=== PATIENT | female | born 1965 | race Caucasian/White ===

== ENCOUNTER → 2018-01-02 | Outpatient (REF) | payer BC | LOC: M SFHCLERA 15:29 | DX: J32.1 Chronic frontal sinusitis (principal) ==

== ENCOUNTER → 2018-12-28 | Outpatient (CLI) | payer BC ==
[~2018-12-28] MED LIST: IBUP200C25 PO; PERC5TAB12 PO; TYLE325T5 PO; naproxen OR
--- NOTE | 2018-12-28 17:50 | REP ---
PA and lateral chest: There are no comparisons. The lung mohan are clear. The cardiac size is normal. The stacey, mediastinum, and skeletal structures are unremarkable. Impression: Negative PA and lateral chest. Electronically Signed by Delta Lujan MD 12/28/2018 05:42 P
== END ==
LOC: M LRY 17:21
PROVIDERS: ATTEND Physician Assistant
DX: R06.09 Other forms of dyspnea (principal)

== ENCOUNTER → 2020-01-01 | Outpatient (CLI) | payer BC ==
[~2020-01-01] MED LIST changes: +GASTROGRAFIN SOLUTION 30ML (Q9963) As Ordered ONE; +ISOVUE-370 76% 100ML VIAL As Ordered ONE
--- NOTE | 2020-01-08 12:49 | REP ---
CT ABDOMEN AND PELVIS WITH ORAL CONTRAST, WITH AND WITHOUT IV CONTRAST HISTORY: Right upper quadrant pain and tenderness. COMPARISON: Comparison CT 10/15/2014. FINDINGS: CT abdomen and pelvis performed. Initial CT abdomen performed with only oral contrast. CT abdomen and pelvis performed following the administration of oral contrast as well as intravenous administration of 100 cc of [id number]. Sagittal and coronal reconstruction images were performed. In the visualized lung bases, there are mild interstitial fibrotic changes. The liver demonstrates no mass. The patient has had a prior cholecystectomy. There is no significant intrahepatic or extrahepatic biliary dilatation. The spleen is normal in size with no intrinsic abnormality. There is a small low density left adrenal nodule inferiorly which measures 1.5 cm in diameter. Density measurements on precontrast images are compatible with an adenoma. The pancreas demonstrates no mass. The kidneys demonstrate no mass or hydronephrosis. There is mild atherosclerotic calcification of the abdominal aorta without aneurysm. No adenopathy is seen in the abdomen or pelvis. There is no free air or free fluid. There is no bowel wall thickening. There is a small midline supraumbilical hernia in the anterior abdominal wall containing only fat. The aperture is fairly wide, approximately 3.4 cm in transverse diameter. No pelvic mass is seen. Urinary bladder is not well distended and is not well evaluated. A cystic structure is seen in the inferior aspect of the right gluteus medius muscle. This measures 3.9 cm in diameter. There are degenerative changes of the spine, most significantly at L5-S1 with moderate disc space narrowing at that level with subchondral sclerosis and vacuum phenomenon. IMPRESSION: Status post cholecystectomy without biliary dilatation. No free air or free fluid. No evidence of bowel obstruction. Small ventral hernia in the supraumbilical anterior abdominal wall containing only fat with an aperture of 3.4 cm in transverse dimension. Small left adrenal adenoma. Within the inferior aspect of the right gluteus medius muscle just above the greater trochanter, there is an oval cyst with a maximum diameter of 3.9 cm. MTDD
== END ==
LOC: M RAD 14:58
PROVIDERS: ATTEND Surgery
DX: R10.11 Right upper quadrant pain (principal); R10.811 Right upper quadrant abdominal tenderness; Z90.49 Acquired absence of other specified parts of digestive tract; D35.00 Benign neoplasm of unspecified adrenal gland
CPT/HCPCS: 74178; Q9963; Q9967

== ENCOUNTER → 2021-09-23 | Outpatient (CLI) | payer MEDICAID ==
[~2021-09-23] MED LIST changes: -GASTROGRAFIN SOLUTION 30ML (Q9963) As Ordered ONE; -ISOVUE-370 76% 100ML VIAL As Ordered ONE
== END ==
LOC: M PLAIMG 10:46
PROVIDERS: ATTEND Nurse Practitioner Family
DX: R91.8 Other nonspecific abnormal finding of lung field (principal); J90 Pleural effusion, not elsewhere classified; Z87.891 Personal history of nicotine dependence

== ENCOUNTER → 2023-12-28 | Outpatient (CLI) | payer OTHER ==
[2023-12-28 13:32] LABS: HEMATOCRIT 36.7 % (36.0-47.0); HEMOGLOBIN 11.3 g/dl (12.0-15.5); MEAN CORPUSCULAR HEMOGLOBIN 26.2 pg (27.0-33.0); MEAN CORPUSCULAR HGB CONC 30.8 g/dl (32.0-36.5); MEAN CORPUSCULAR VOLUME 85.2 fl (80.0-96.0); PLATELET COUNT, AUTOMATED 461 10^3/uL (150-450); RED BLOOD COUNT 4.31 10^6/uL (4.00-5.40); WHITE BLOOD COUNT 10.9 10^3/uL (4.0-10.0)
[2023-12-28 14:01] LABS: ALBUMIN 3.6 G/DL (3.2-5.2); ALKALINE PHOSPHATASE 108 U/L (46-116); ALT/SGPT 28 U/L (7.0-40); AST/SGOT 20 U/L (<34); BILIRUBIN,TOTAL 0.3 MG/DL (0.3-1.2); BLOOD UREA NITROGEN 11 MG/DL (9-23); CALCIUM LEVEL 9.5 MG/DL (8.5-10.1); CARBON DIOXIDE LEVEL 26 MMOL/L (20-31); CHLORIDE LEVEL 107 MMOL/L (98-107); CHOLESTEROL LEVEL 198 MG/DL (<200); CHOLESTEROL RISK RATIO 4.07 (<5); CREATININE FOR GFR 0.73 MG/DL (0.55-1.30); GLOMERULAR FILTRATION RATE > 60.0 (>51); GLUCOSE, FASTING 86 MG/DL (60-100); HDL CHOLESTEROL 48.6 MG/DL (>40); LDL CHOLESTEROL 108.8 MG/DL (<100); NON-HDL-C 149.4 MG/DL; POTASSIUM SERUM 4.7 MMOL/L (3.5-5.1); SODIUM LEVEL 138 MMOL/L (136-145); TOTAL PROTEIN 7.3 G/DL (5.7-8.2); TRIGLYCERIDES LEVEL 203 MG/DL (<150)
== END ==
LOC: M LAB 12:56
PROVIDERS: ATTEND Internal Medicine Cardiovascular Disease
DX: R06.09 Other forms of dyspnea (principal); I10 Essential (primary) hypertension

== ENCOUNTER → 2024-03-03 | Outpatient (CLI) | payer OTHER | LOC: M RAD 12:50 | PROVIDERS: ATTEND Internal Medicine Pulmonary Disease | DX: Z12.2 Encounter for screening for malignant neoplasm of respiratory organs (principal); Z87.891 Personal history of nicotine dependence; R91.8 Other nonspecific abnormal finding of lung field ==

== ENCOUNTER → 2025-01-31 | Outpatient (CLI) | payer OTHER | LOC: M PLAIMG 11:54 | PROVIDERS: ATTEND Internal Medicine Pulmonary Disease | DX: R06.02 Shortness of breath (principal) ==